=== PATIENT | male | born 1940 | race Caucasian/White ===

== ENCOUNTER 2017-11-06 21:03 | Observation (INO) | payer OTHER ==
[2017-11-06] MEDS ORDERED: NS 500 ML IV ONE (21:45)
--- NOTE | 2017-11-06 21:45 | EDPHY ---
H & P Time Seen by Provider: 11/06/17 21:36 HPI/ROS: CHIEF COMPLAINT: Dizzy, nausea, vomiting HISTORY OF PRESENT ILLNESS: Patient is a 77-year-old male with a history of coronary disease and GI bleed who presents emergency department with dizziness and nausea vomiting. Patient states his symptoms started 2 nights ago. He felt dizzy for approximately 1 2 hr. He then had a bowel movement and developed nausea and 1 episode of nonbloody emesis. His symptoms subsequently resolved. He felt better yesterday and today. However, this evening he had similar symptoms. He became dizzy. This was followed by an episode of nausea and nonbloody emesis. No chest pain or shortness of breath. No abdominal pain. No diarrhea. No change in the color of her stools. Patient states his dizziness is a vague sense of feeling off balance. No vertigo. He has had no ringing in his ears. No fevers or chills. REVIEW OF SYSTEMS: My complete review of systems is negative except as mentioned in the HPI. Past Medical/Surgical History: Includes coronary artery disease, GI bleed Past surgical history: Includes cardiac stent placement Social history: Patient is . He does not use alcohol. He does not smoke. Smoking Status: Never smoked Physical Exam: 36.9, 135/77, 65, 18, 97% on room air GENERAL: Well-appearing, in no acute distress, alert. Smiling. HEENT: Eyes normal to inspection, normal pharynx, no signs of dehydration. Hearing AA. NECK: No thyromegaly, no lymphadenopathy, supple. RESPIRATORY: Clear to auscultation bilaterally, no rales, rhonchi or wheezing. CVS: Regular rate and rhythm, no rubs, murmurs, or gallops. ABDOMEN: Soft, nontender, nondistended, no organomegaly. BACK: Normal to inspection, no CVA tenderness. SKIN: Normal color, no rash, warm, dry. No pallor. EXTREMITIES: No pedal edema, no calf tenderness, no Homans sign or cords, no joint swelling. NEURO/PSYCH: Higher functions: Alert and Oriented x3. Normal speech and cognition. Normal mood and affect. Cranial nerves: Normal as tested. Cerebellar: Normal as tested. Good finger to nose, good [id number], normal gait. Peripheral exam: Normal motor exam. Normal sensation. Normal reflexes. Constitutional: Initial Vital Signs Temperature (C) 36.9 C 11/06/17 21:09 Heart Rate 65 11/06/17 21:09 Respiratory Rate 18 11/06/17 21:09 Blood Pressure 135/77 H 11/06/17 21:09 O2 Sat (%) 97 11/06/17 21:09 O2 Delivery Mode Room Air Allergies/Adverse Reactions: ampicillin [Ampicillin] Allergy (Severe, Verified 08/04/09 15:07) Other-Enter Comments aspirin [Aspirin] Allergy (Severe, Verified 08/04/09 15:06) Other-Enter Comments Home Medications: Medication Instructions Recorded Alfuzosin HCl 11/06/17 Flonase Allergy Relief 11/06/17 Lipitor 11/06/17 Plavix 11/06/17 Protonix 11/06/17 Ramipril 11/06/17 Medical Decision Making - Diagnostics EKG Interpretation: EKG shows sinus bradycardia, normal axis, normal intervals. There are no ST or T-wave abnormalities. Imaging Results: Imaging Impressions Head CT 11/06/17 21:45 Impression: 1. Mild underlying atrophy without acute intracranial abnormality. 2. Chronic paranasal sinus mucoperiosteal thickening. Results called to Dr. Sarika Adan at 10:15 PM at the time of the interpretation. ED Course/Re-evaluation: In the emergency department I discussed possible etiologies with the patient. I answered all of his questions. IV was placed. Laboratory studies, EKG and head CT were ordered. I reviewed the patient's laboratory studies. CBC and chemistry unremarkable. Troponin was negative. Coags were normal. Rechecked the patient on numerous occasions. He had no focal neurologic deficits on repeat exam. I discussed the case with the hospitalist service. Dr. Foreman accepted the patient. I discussed the plan with the patient. I answered all their questions. Differential Diagnosis: My differential includes but is not limited to ischemic CVA, hemorrhagic CVA, ACS, acute WI, dissection, aneurysm - Data Points Laboratory Results: Laboratory Results 11/06/17 21:30 11/06/17 21:30 11/06/17 11/06/17 11/06/17 21:30 21:30 21:30 WBC 9.33 10^3/uL 10^3/uL (3.80-9.50) RBC 4.61 10^6/uL 10^6/uL (4.40-6.38) Hgb 14.4 g/dL g/dL (13.7-17.5) Hct 42.7 % % (40.0-51.0) MCV 92.6 fL fL (81.5-99.8) MCH 31.2 pg pg (27.9-34.1) MCHC 33.7 g/dL g/dL (32.4-36.7) RDW 12.2 % % (11.5-15.2) Plt Count 176 10^3/uL 10^3/uL (150-400) MPV 9.2 fL fL (8.7-11.7) Neut % (Auto) 72.1 % % (39.3-74.2) Lymph % (Auto) 16.9 % % (15.0-45.0) [place] % (Auto) 7.4 % % (4.5-13.0) Eos % (Auto) 2.6 % % (0.6-7.6) Baso % (Auto) 0.6 % % (0.3-1.7) Nucleat RBC Rel Count 0.0 % % (0.0-0.2) Absolute Neuts (auto) 6.72 10^3/uL H 10^3/uL (1.70-6.50) Absolute Lymphs (auto) 1.58 10^3/uL 10^3/uL (1.00-3.00) Absolute Monos (auto) 0.69 10^3/uL 10^3/uL (0.30-0.80) Absolute Eos (auto) 0.24 10^3/uL 10^3/uL (0.03-0.40) Absolute Basos (auto) 0.06 10^3/uL 10^3/uL (0.02-0.10) Absolute Nucleated RBC 0.00 10^3/uL 10^3/uL (0-0.01) Immature Gran % 0.4 % % (0.0-1.1) Immature Gran # 0.04 10^3/uL 10^3/uL (0.00-0.10) PT 13.5 SEC SEC (12.0-15.0) INR 1.01 (0.83-1.16) APTT 26.6 SEC SEC (23.0-38.0) Sodium 139 mEq/L mEq/L (135-145) Potassium 4.6 mEq/L mEq/L (3.5-5.2) Chloride 104 mEq/L mEq/L (97-110) Carbon Dioxide 26 mEq/l mEq/l (22-31) Anion Gap 9 mEq/L mEq/L (8-16) BUN 16 mg/dL mg/dL (7-23) Creatinine 1.2 mg/dL mg/dL (0.7-1.3) Estimated GFR 59 Glucose 109 mg/dL H mg/dL (70-100) Calcium 9.0 mg/dL mg/dL (8.5-10.4) Total Bilirubin 0.5 mg/dL mg/dL (0.1-1.4) Conjugated Bilirubin 0.4 mg/dL mg/dL (0.0-0.5) Unconjugated Bilirubin 0.1 mg/dL mg/dL (0.0-1.1) AST 36 IU/L IU/L (17-59) ALT 50 IU/L IU/L (21-72) Alkaline Phosphatase 84 IU/L IU/L (38-126) Troponin I < 0.012 ng/mL ng/mL (0.000-0.034) Total Protein 6.2 g/dL L g/dL (6.3-8.2) Albumin 3.9 g/dL g/dL (3.5-5.0) Lipase 63 IU/L IU/L (23-300) Medications Given: Discontinued Medications Sodium Chloride (Ns) 500 mls @ 1,000 mls/hr IV EDNOW ONE PRN Reason: Protocol Stop: 11/06/17 22:14 Last Admin: 11/06/17 22:31 Dose: 500 mls Meclizine HCl (Meclizine Hcl) 25 mg PO EDNOW ONE Stop: 11/06/17 21:47 Last Admin: 11/06/17 22:32 Dose: 25 mg Departure - Departure Disposition: [facility] Inpatient Acute Clinical Impression: Dizziness Condition: Good
[2017-11-06] MEDS ORDERED: MECLIZINE HCL 25 MG TAB PO ONE (21:46)
[2017-11-06 21:51] LABS: PLATELET COUNT 176 10^3/uL (150-400)
[2017-11-06 22:01] LABS: INR 1.01 (0.83-1.16); PROTIME(PATIENT) 13.5 SEC (12.0-15.0)
--- NOTE | 2017-11-06 22:16 | CPEKG ---
Heart Rate: 47 RR Interval: 1277 P-R Interval: 196 QRSD Interval: 106 QT Interval: 500 QTC Interval: 442 P [place]: 62 QRS [place]: -40 T Wave [place]: 9 EKG Severity - BORDERLINE ECG - EKG Impression: SINUS BRADYCARDIA EKG Impression: BORDERLINE IVCD WITH LAD Electronically Signed By: Tor Javed 07-Nov-2017 05:42:08
[2017-11-06] MEDS ORDERED: ONDANSETRON DISINTEGRATING 4 MG TAB PO PRN (22:53)
[2017-11-06] MEDS ORDERED: PROMETHAZINE HCL 25 MG/ML INJ IVP PRN (22:53)
[2017-11-06] MEDS ORDERED: ONDANSETRON 4 MG/2 ML VIAL IVP PRN (22:53)
[2017-11-06] MEDS ORDERED: ACETAMINOPHEN 325 MG TAB PO PRN (22:53)
[2017-11-07 05:20] LABS: PLATELET COUNT 162 10^3/uL (150-400)
--- NOTE | 2017-11-07 05:49 | PDGENHP ---
History and Physical - Chief Complaint Dizziness, N/V - History of Present Illness 77 yo M w/ CAD presents with dizziness and nausea. Patient first noticed dizziness two nights ago. This was accompanied by an episode of vomiting. Yesterday during the day he felt well but then at night he again experienced dizziness and vomiting. At that point he came to the ED. He describes the sensation as feeling unsteady on his feet, not that the room is spinning around him. He has never had vertigo before. After IVF in the ED he feels improved and currently denies symptoms. He did have a sinus infection 2 weeks ago, which his also had. History Information - Allergies/Home Medication List Allergies/Adverse Reactions: ampicillin [Ampicillin] Allergy (Severe, Verified 08/04/09 15:07) Other-Enter Comments aspirin [Aspirin] Allergy (Severe, Verified 08/04/09 15:06) Other-Enter Comments Home Medications: Alfuzosin HCl 11/06/17 [Last Taken Unknown] Flonase Allergy Relief 11/06/17 [Last Taken Unknown] Lipitor 11/06/17 [Last Taken Unknown] Plavix 11/06/17 [Last Taken Unknown] Protonix 11/06/17 [Last Taken Unknown] Ramipril 11/06/17 [Last Taken Unknown] I have personally reviewed and updated: family history, medical history - Past Medical History coronary artery disease - Surgical History Reports: coronary stent - Family History Positive for: CAD - Social History Smoking Status: Never smoked Review of Systems Review of Systems: ROS: 10pt was reviewed & negative except for what was stated in HPI & below Physical Exam Physical Exam: Temp Pulse Resp BP Pulse Ox 36.7 C 53 L 16 111/63 95 11/07/17 05:09 11/07/17 05:09 11/07/17 05:09 11/07/17 05:09 11/07/17 05:09 Constitutional: no apparent distress, not in pain Eyes: PERRL, EOMI Ears, Nose, Mouth, Throat: moist mucous membranes, no oral mucosal ulcers Cardiovascular: regular rate and rhythym, no murmur, rub, or gallop Respiratory: no respiratory distress, no rales or rhonchi Gastrointestinal: normoactive bowel sounds, soft, non-tender abdomen Skin: warm, normal color Musculoskeletal: full muscle strength, no muscle tenderness Neurologic: AAOx3, CN II-XII Intact, other (Finger to nose and heel to mclaughlin intact) Psychiatric: interacting appropriately, not anxious Lab Data & Imaging Review 11/07/17 05:06 11/07/17 05:06 WBC 8.27 10^3/uL (3.80-9.50) 11/07/17 05:06 RBC 4.39 10^6/uL (4.40-6.38) L 11/07/17 05:06 Hgb 13.6 g/dL (13.7-17.5) L 11/07/17 05:06 Hct 40.3 % (40.0-51.0) 11/07/17 05:06 MCV 91.8 fL (81.5-99.8) 11/07/17 05:06 MCH 31.0 pg (27.9-34.1) 11/07/17 05:06 MCHC 33.7 g/dL (32.4-36.7) 11/07/17 05:06 RDW 12.1 % (11.5-15.2) 11/07/17 05:06 Plt Count 162 10^3/uL (150-400) 11/07/17 05:06 MPV 9.0 fL (8.7-11.7) 11/07/17 05:06 Neut % (Auto) 61.7 % (39.3-74.2) 11/07/17 05:06 Lymph % (Auto) 25.8 % (15.0-45.0) 11/07/17 05:06 [place] % (Auto) 8.7 % (4.5-13.0) 11/07/17 05:06 Eos % (Auto) 2.7 % (0.6-7.6) 11/07/17 05:06 Baso % (Auto) 0.7 % (0.3-1.7) 11/07/17 05:06 Nucleat RBC Rel Count 0.0 % (0.0-0.2) 11/07/17 05:06 Absolute Neuts (auto) 5.11 10^3/uL (1.70-6.50) 11/07/17 05:06 Absolute Lymphs (auto) 2.13 10^3/uL (1.00-3.00) 11/07/17 05:06 Absolute Monos (auto) 0.72 10^3/uL (0.30-0.80) 11/07/17 05:06 Absolute Eos (auto) 0.22 10^3/uL (0.03-0.40) 11/07/17 05:06 Absolute Basos (auto) 0.06 10^3/uL (0.02-0.10) 11/07/17 05:06 Absolute Nucleated RBC 0.00 10^3/uL (0-0.01) 11/07/17 05:06 Immature Gran % 0.4 % (0.0-1.1) 11/07/17 05:06 Immature Gran # 0.03 10^3/uL (0.00-0.10) 11/07/17 05:06 PT 13.5 SEC (12.0-15.0) 11/06/17 21:30 INR 1.01 (0.83-1.16) 11/06/17 21:30 APTT 26.6 SEC (23.0-38.0) 11/06/17 21:30 Sodium 140 mEq/L (135-145) 11/07/17 05:06 Potassium 4.3 mEq/L (3.5-5.2) 11/07/17 05:06 Chloride 109 mEq/L (97-110) 11/07/17 05:06 Carbon Dioxide 25 mEq/l (22-31) 11/07/17 05:06 Anion Gap 6 mEq/L (8-16) L 11/07/17 05:06 BUN 15 mg/dL (7-23) 11/07/17 05:06 Creatinine 1.1 mg/dL (0.7-1.3) 11/07/17 05:06 Estimated GFR > 60 11/07/17 05:06 Glucose 93 mg/dL (70-100) 11/07/17 05:06 Calcium 8.6 mg/dL (8.5-10.4) 11/07/17 05:06 Total Bilirubin 0.5 mg/dL (0.1-1.4) 11/06/17 21:30 Conjugated Bilirubin 0.4 mg/dL (0.0-0.5) 11/06/17 21:30 Unconjugated Bilirubin 0.1 mg/dL (0.0-1.1) 11/06/17 21:30 AST 36 IU/L (17-59) 11/06/17 21:30 ALT 50 IU/L (21-72) 11/06/17 21:30 Alkaline Phosphatase 84 IU/L (38-126) 11/06/17 21:30 Troponin I < 0.012 ng/mL (0.000-0.034) 11/06/17 21:30 Total Protein 6.2 g/dL (6.3-8.2) L 11/06/17:30 Albumin 3.9 g/dL (3.5-5.0) 11/06/17: Lipase 63 IU/L (23-300) 11/06/17 21:30 Imaging Review: Imaging Impressions Head CT 11/06/17 21:45 Impression: 1. Mild underlying atrophy without acute intracranial abnormality. 2. Chronic paranasal sinus mucoperiosteal thickening. Results called to Dr. Sarika Adan at 10:15 PM at the time of the interpretation. Assessment & Plan Assessment: 77 yo M w/ CAD presents with dizziness and nausea. Plan: 1. Dizziness - Present for 2 nights and associated with nausea and vomiting. Constellation of symptoms suspicious for vertigo although description of dizziness not entirely classic. Patient did have sinus infection 2 weeks ago, which may suggest viral labyrinthitis. Dehydration may also be playing a role as symptoms much improved after IVF. CTH and neuro exam, including cerebellar function, unremarkable. - Admit for observation - Meclizine, anti-emetics PRN - PT/OT evaluations 2. CAD - S/p previous stenting; denies chest pain. Diet - Regular Code - Full Ppx - LMWH Dispo - Admit under observation status
[2017-11-07] MEDS ORDERED: MECLIZINE HCL 25 MG TAB PO PRN (05:55)
[2017-11-07 08:17] VITALS: BP 116/67
[2017-11-07] MEDS ORDERED: ENOXAPARIN 40 MG/0.4 ML SYR SC SCH (09:00)
--- NOTE | 2017-11-07 11:09 | GDS ---
[f rep st] DISCHARGE SUMMARY DISCHARGE DIAGNOSES: 1. Dizziness. Suspect dehydration versus labyrinthitis. 2. Bradycardia. Suspect asymptomatic. 3. Benign prostatic hypertrophy. 4. Coronary artery disease, status post stent. HISTORY: The patient is a 77-year-old male, who presents with dizziness and nausea. He has had recu rrent episodes at night described more as a feeling of unsteadiness on his feet rather than the room spinning around him. He improved in the emergency room after IV fluid and has not had recurrence of symptoms since admission. He recently suffered from a sinus infection. The patient was admitted to observation, and serial troponins were negative. He was monitored on tel emetry and did have some sinus bradycardia episodes into the high 40s, but this was not associated wi th any recurrence of symptoms. He is noted to be on an alpha-1 soco for BPH, although he has been on this medication for 8 years and has never had difficulties tolerating it in the past. Given his complete asymptomatic nature during his period of observation, I do feel he is safe for dis charge home today. I suspect this episode can be attributed to dehydration versus viral labyrinthiti s. He was advised regarding his bradycardia, and if he has recurrence of symptoms could consider con sultation with Dr. Boo for outpatient cardiac monitoring to see whether symptomatic bradycardia may be contributing. DISCHARGE MEDICATIONS: Please see computerized record for full detailed list. There were no new med ications given at time of hospital discharge. ADDITIONAL DISCHARGE INSTRUCTIONS: If recurrent dizzy spells, consider outpatient consultation with Dr. Boo for outpatient monitoring to assess the bradycardia. It may be contributing to his dizzines s. Patient was seen examined by me on the day of discharge. /[id number]/MODL
[2017-11-07] MEDS ORDERED: ATORVASTATIN CALCIUM 40 MG TAB PO SCH (21:00)
[2017-11-07] MEDS ORDERED: FLUTICASONE NASAL 120 SPRAYS/16 GM MDI EACHNARE SCH (21:00)
[2017-11-08] MEDS ORDERED: CLOPIDOGREL BISULFATE 75 MG TAB PO SCH (09:00)
[2017-11-08] MEDS ORDERED: RAMIPRIL 2.5 MG CAP PO SCH (09:00)
[2017-11-08] MEDS ORDERED: PANTOPRAZOLE SODIUM 40 MG TAB PO SCH (09:00)
== END 2017-11-07 10:59 | disposition home or self-care (01) ==
LOC: F1N 11-07 01:23
PROVIDERS: ADMIT Student in an Organized Health Care Education/Training Program; ATTEND Internal Medicine
DX: R42 Dizziness and giddiness (principal); R00.1 Bradycardia, unspecified; R11.2 Nausea with vomiting, unspecified; E86.9 Volume depletion, unspecified; N40.0 Benign prostatic hyperplasia without lower urinary tract symptoms; I25.10 Atherosclerotic heart disease of native coronary artery without angina pectoris; Z95.5 Presence of coronary angioplasty implant and graft; Z82.49 Family history of ischemic heart disease and other diseases of the circulatory system; Z88.0 Allergy status to penicillin
CPT/HCPCS: 70450; 93005; 99285; G0378; J1650